=== PATIENT | female | born 1945 | race Caucasian/White ===

== ENCOUNTER 2020-12-04 12:44 | Outpatient (REF) | payer MEDICARE, SELFPAY ==
[2020-12-04 14:16] LABS: Hematocrit 39.3 % (37-47); Hemoglobin 12.4 g/dl (12.0-16.0); Mean Corpuscular HGB Conc 31.6 g/dl (31.0-35.0); Mean Corpuscular Volume 94.9 fL (80-98); Mean Platelet Volume 11.5 fL (9.4-12.3); Platelet Count 393 X10*3/uL (160-400); Red Blood Count 4.14 X10*6/uL (4.20-5.50); Red Cell Distribution Width 12.2 % (11.0-16.0); White Blood Count 11.5 X10*3/uL (4.8-10.8)
[2020-12-04 14:39] LABS: Estimated Average Glucose 105 mg/dL; Hemoglobin A1c % 5.3 %
[2020-12-04 15:02] LABS: Alanine Aminotransferase 11 U/L (0-31); Albumin Level 4.2 g/dL (3.5-5.0); Alkaline Phosphatase 100 U/L (39-117); Anion Gap 14 (12-20); Aspartate Amino Transferase 18 U/L (5-31); Bilirubin Direct < 0.2 mg/dL (0.0-0.5); Bilirubin Total 0.3 mg/dL (0.0-1.0); Blood Urea Nitrogen 13 mg/dL (9-16); Calcium 9.6 mg/dL (8.4-10.2); Carbon Dioxide 28 mmol/L (22-29); Chloride 99 mmol/L (96-108); Cholesterol 203 mg/dL; Estimated Glomerular Filt Rate > 60; Glucose Random 94 mg/dL (60-115); HDL Cholesterol 47 mg/dL; Iron 91 mcg/dL (30-160); LDL Cholesterol Calculated 124 mg/dl; Percent Iron Saturation 28 % (15-50); Potassium 4.9 mmol/L (3.3-5.1); Sodium 136 mmol/L (135-145); Total Iron Binding Capacity 329 mcg/dL (228-428); Total Protein 7.9 g/dL (6.5-8.0); Triglycerides 160 mg/dL; Unsaturated Iron Binding 238 ug/dL
[2020-12-04 15:18] LABS: Ferritin 88 ng/mL (10-250); Free T4 (Free Thyroxine) 1.08 ng/dL (0.71-1.85); Thyroid Stimulating Hormone 1.23 uIU/mL (0.32-4.0); Vitamin D 25-OH Total 37.6 ng/mL (>30)
[2020-12-04 15:36] LABS: Folate 4.8 ng/mL (> or = 4.0); Vitamin B12 297 pg/mL (200-900)
[2020-12-05 08:09] LABS: HBsAGNum1 0.15 S/CO (0.00-0.99); Hepatitis B Surface Antigen Negative (Negative); ~HepC Num1 0.55 S/CO (0.00-0.79); ~Hepatitis C Antibody Nonreactive (Nonreactive)
[2020-12-05 08:18] LABS: HBS Num1 0.44 mIU/mL (0-7.99); HIV AB/AG Nonreactive (Nonreactive); ~Hepatitis B Surface Antibody NONREACTIVE (Nonreactive)
[2020-12-05 08:33] LABS: Hepatitis A Antibody IgG REACTIVE (Nonreactive); ~Hepatitis A Antibody IgG 7.94 S/CO (0.00-0.99)
[2020-12-05 08:44] LABS: Syphilis Screen Nonreactive (Nonreactive)
== END 2020-12-04 12:45 | disposition home or self-care (01) ==
LOC: HO.HMGCLNP 12:44
PROVIDERS: Visit Provider Family Medicine
DX: E78.5 Hyperlipidemia, unspecified (principal); I10 Essential (primary) hypertension; Z11.3 Encounter for screening for infections with a predominantly sexual mode of transmission
CPT/HCPCS: 80048; 80061; 80076; 82306; 82607; 82728; 82746; 83036; 83540; 84439; 84443; 85027; 86706; 86708; 86780; 86803; 87340; 87389

== ENCOUNTER 2024-01-09 08:15 | Outpatient (REF) | payer MEDICARE, SELFPAY ==
[2024-01-09 11:31] LABS: Hematocrit 38.9 % (37.0-47.0); Hemoglobin 12.2 g/dl (12.0-16.0); Mean Corpuscular HGB Conc 31.4 g/dl (31.0-35.0); Mean Corpuscular Hemoglobin 30.6 pg (27.0-33.0); Mean Corpuscular Volume 97.5 fL (80.0-98.0); Mean Platelet Volume 12.5 fL (9.4-12.3); Platelet Count 204 X10*3/uL (160-400); Red Blood Count 3.99 X10*6/uL (4.20-5.50); Red Cell Distribution Width 12.1 % (11.0-16.0); White Blood Count 8.1 X10*3/uL (4.8-10.8)
[2024-01-09 11:46] LABS: Estimated Average Glucose 94 mg/dL; Hemoglobin A1c % 4.9 % (<6.0)
[2024-01-09 11:49] LABS: Alanine Aminotransferase 12 U/L (0-31); Albumin Level 4.1 g/dL (3.5-5.0); Alkaline Phosphatase 98 U/L (39-117); Anion Gap 14 (12-20); Aspartate Amino Transferase 21 U/L (5-31); Bilirubin Direct < 0.2 mg/dL (0.0-0.5); Bilirubin Total 0.2 mg/dL (0.0-1.0); Blood Urea Nitrogen 13 mg/dL (9-16); Calcium 9.8 mg/dL (8.4-10.2); Carbon Dioxide 31 mmol/L (22-29); Chloride 102 mmol/L (96-108); Cholesterol 197 mg/dL (<200); Estimated Glomerular Filt Rate > 60; Glucose Random 104 mg/dL (60-115); HDL Cholesterol 40 mg/dL (>40); LDL Cholesterol Calculated 123 mg/dL (<100); Potassium 3.9 mmol/L (3.3-5.1); Sodium 143 mmol/L (135-145); Total Protein 7.7 g/dL (6.5-8.0); Triglycerides 174 mg/dL (<150)
[2024-01-09 12:07] LABS: Free T4 (Free Thyroxine) 1.02 ng/dL (0.71-1.85); Thyroid Stimulating Hormone 1.03 uIU/mL (0.32-4.0); Vitamin D 25-OH Total 70.5 ng/mL (>30)
== END 2024-01-09 08:16 | disposition home or self-care (01) ==
LOC: HO.HHCL 08:15
PROVIDERS: Visit Provider Family Medicine
DX: H93.8X3 Other specified disorders of ear, bilateral (principal); F41.9 Anxiety disorder, unspecified; F32.A Depression, unspecified; G20.A1 Parkinson's disease without dyskinesia, without mention of fluctuations; Z13.1 Encounter for screening for diabetes mellitus
CPT/HCPCS: 36415; 80048; 80061; 80076; 82306; 83036; 84439; 84443; 85027

== ENCOUNTER 2025-01-08 11:28 | Outpatient (AMB) | payer MEDICARE, SELFPAY ==
--- NOTE | 2025-01-08 11:30 | A.OFFVIS_ITS ---
Intake Visit Reasons: Follow Up Allergies No Known Allergies Allergy (Verified 01/04/25 14:27) HPI Comments Details: 79 yo woman with COPD, severe arthritis, and hand tremor. She was continuously having right hand and jaw tremor. She was also c/o right occipital area pain and hearing difficulty. She is presenting with tremor and management of headache. She has been experiencing persistent tremors and previously attempted treatment with epilepsy medications such as Tramadol, Clonazepam, and Topiramate, which provided limited relief. Additionally, she has a history of arthritis for which she has tried aspirin and previously used medications like prednisone. Her headaches have seen improvement with ongoing Topiramate use, and she continues this medication regimen. She also has a history of COPD, which was briefly addressed as part of her comprehensive health care management. [facility] Medical History (Updated 01/08/25 @ 11:37 by Meghann Ro MD) Parkinsonism Rheumatoid arthritis Review of Systems Const Details: - Musculoskeletal: Reports persistent tremor and arthritis. - Neurological: Reports headaches managed with Topiramate. Denies current recurrence of headaches. - Respiratory: Reports history of COPD. Physical Exam Neuro Other: She is alert and awake with normal spontaneity of speech fluency comprehension and affect. She has severe arthritic changes in hands. There was [id number] bilateral hand tremor. She is in a wheelchair. Assessment & Plan Assessment & Plan (1) Tremor: Comment: Meds tried: Primidone, benztropine, amantadine, clonazepam, carbidopa/levodopa, topiramate Code(s): R25.1 - Tremor, unspecified Category: Medical (2) Occipital neuralgia: Code(s): M54.81 - Occipital neuralgia Category: Medical Qualifiers: Laterality: right Qualified Code(s): M54.81 - Occipital neuralgia (3) Migraine: Code(s): G43.909 - Migraine, unspecified, not intractable, without status migrainosus Category: Medical Qualifiers: Migraine type: migraine (< 15 days per month) without aura Status migrainosus presence: without status migrainosus Intractability: not intractable Qualified Code(s): G43.009 - Migraine without aura, not intractable, without status migrainosus Plan Impression: a: Severe arthritis b: Moderate to severe hand tremor, resistent to meds c: Chronic migraine type headaches d: Oxygen dependent COPD Rec: a: Try phenobarb 30mg one at night for tremor b: Topiramate 50mg bid for headaches During the visit, we discussed the patient's experience with various epilepsy medications for her tremor, noting limited success. Consequently, I decided to prescribe Phenobarbital, as it is an older medication that has shown effectiveness for tremors. We also reviewed her headache management, and it was concluded that continuation with Topiramate is beneficial, as she confirms improved symptoms. There was no new plan made for her arthritis beyond her current aspirin use, and her COPD treatment was not altered in this encounter. We agreed on a follow-up in three months to reassess her tremor and overall condition. Medications: New phenobarbital 30 mg PO BEDTIME 90 tabs 0RF Refilled topiramate 50 mg PO BID 180 tabs 0RF 90 days Coding Level of Care Code Est Pt Level 4 (56459) Diagnoses Tremor R25.1 Occipital neuralgia of right side M54.81 Laterality: right Migraine without aura and without status migrainosus, not intractable G43.009 Migraine type: migraine (< 15 days per month) without aura Status migrainosus presence: without status migrainosus Intractability: not intractable
--- OUTSIDE RECORDS SUMMARY | 2025-01-08 14:23 | XMS_ITS | Encounter Summary ---
Author Organization [employer] Address [address] [facility] 7t [place] [address] Care Team Providers Care Grinder Set Up Operator Internal Name Role Phone Elena Lees DO Primary Care Provider +1- [phone] Reason for Visit * Reason Onset Date Comments Medication Question 06/22/2024 Encounter Details Date Type Department Care Team (Late st Contact Info) Description 06/22/2024 Telephone [facility] [address] [place], [place] [phone] Elena Lees DO [address] [place], [place] [phone] Medication Question Social History Tobacco Use Types Packs/Day Years Used Date Smoking Tobacco: Every Day Cigarettes Smokeless Tobacco: Never Depression Answer Date Recorded Patient Health Questionnaire-9 Score 25 06/30/2023 Patient Health Questionnaire-9 Score 25 06/30/2023 Last PHQ-9: Questionnaire Data Not on file 0 06/30/2023 Depression Answer Date Recorded Patient Health Questionnaire-2 Score 6 06/30/2023 Comments Unknown Sex and Gender Information Value Date Recorded Sex Assigned at Female 02/15/2022 10:38 AM EDT Legal Sex Female 10:38 AM EDT Gender Identity Female 02/15/2022 10:38 AM EDT Sexual Orientation Don't know 02/15/2022 10 :38 AM EDT documented as of this encounter Miscellaneous Notes * Telephone Encounter - Steve Parr RN - 06/22/2024 3:31 PM EST TC placed to patient daughter in regards to message below. Daughter not on HIPAA. Patient advised daughter would need verbal consent from patient to speak with her. Patient was with daughter at time of call. Patient gave verbal consent to be able to speak with daughter. Daughter reports patient hasbeen having runny nose, sneezing itchy watery eyes, burning eye (slight redness). Daughter states the loratadine (Claritin) doesn't help and the cetirizine) Zyrtec helped better in the past. Per lastoffice note Zyrtec was changed to Claritin. Patients daughter was not present for that appt. RN advised to have patient try Claritin and nasacort for now and RN will send message to PCP to see if shecan be switched back to the Zyrtec which per daughter works better for patient than Claritin. Daughter verbalized understanding and agreed with plan. * Telephone Encounter - Kylah Bailey - 06/22/2024 2:48 PM EST Tc from pt's daughter requesting cetirizine (ZyrTEC) 10 MG tablet (discontinued med) documented in this encounter Plan of Treatment Not on file documented as of this encounter Visit Diagnoses Not on filedocumented in this encounter Additional Health Concerns Assessment Noted Time PHQ-9 Depression Total Score: 25 06/29/ 024 9:18 AM EDT documented as of this encounter Care Teams Grinder Set Up Operator Internal Relationship Specialty Start Date End Date Elena Lees DO [address] [place] [id number] PCP - General Family Medicine 11/26/20 documented as of this encounter
--- OUTSIDE RECORDS SUMMARY | 2025-01-08 14:23 | XMS_ITS | Encounter Summary ---
Author Organization [employer] Address [address] [facility] 7t [place] [address] Care Team Providers Care Bow Maker Name Role Phone Elena Lees DO Primary Care Provider [phone]- [phone] Reason for Visit * Reason Onset Date Comments Med Refill 05/01/2024 Encounter Details Date Type Department Care Team (Late st Contact Info) Description 05/01/2024 Telephone [facility] [address] [place], [place] [phone] Elena Lees DO 230 [place], [place] [phone] Med Refill Social History Tobacco Use Types Packs/Day Years [...] encounter Miscellaneous Notes * Telephone Encounter - Elena Norris LPN - 05/01/2024 11:16 AM EST Script was sent to [id number] on 03/19/24 #30 with 2 refills please advise patient to call pharmacy for refill. * Telephone Encounter - Kylah Kanika Bailey - 05/01/2024 11:10 AM EST TC from pt requesting medication refill. Medications needing refill : sertraline (Zoloft) 25 MG tablet To be sent to: [id number] - [place], [place] - [address] [facility] [address] documented in this encounter Plan of Treatment Not on file documented as of this encounter Visit Diagnoses Not on filedocumented in this encounter Additional Health Concerns Assessment Noted Time PHQ-9 Depression Total Score: 25 024 9:18 AM EDT documented as of this encounter Care Teams Bow Maker Relationship Specialty Start Date End Date Elena Lees DO [address] [place] [address] PCP - General Family Medicine 11/26/20 documented as of this encounter
--- OUTSIDE RECORDS SUMMARY | 2025-01-08 14:23 | XMS_ITS | Encounter Summary ---
Author Organization [employer] Address [address] [facility] 7t [place] [address] Care Team Providers Care Membership Sales Advisor Name Role Phone EllenjacquiElena DO Primary Care Provider [phone] Reason for Visit * Reason Onset Date Comments Nurse Triage 05/16/2023 Encounter Details Date Type Department Care Team (Late st Contact Info) Description 05/16/2023 Telephone [facility] 230 [place], [place] [phone] Elena Lees DO [address] [place], [place] [phone] Nurse Triage Social History Tobacco Use Types Packs/Day Years Used Date Smoking Tobacco: Every Day Cigarettes Smokeless Tobacco: Never Comments Unknown Sex and Gender Information Value Date Recorded Sex Assigned at Female 02/15/2022 10:38 AM EDT Legal Sex Female 10:38 AM EDT Gender Identity Female 02/15/2022 10:38 AM EDT Sexual Orientation Don't know 02/15/2022 10 :38 AM EDT documented as of this encounter Miscellaneous Notes * Telephone Encounter - Margo Jackson RN - 05/16/2023 10:57 AM EST Call to Josey Nguyen, reports having right ear pain x 2 days. No redness behind ear or drainage. Pt also having itching and congestion. Mild ST. No headache or fever. Pt offered stephanie today or tomorrow. Pt states has no transportation. Pt offered [employer]. Pt declines as states is in a wheelchair.Pt was looking to r/s appt with PCP. Nothing with PCP at this time. Pt advised to seek UC. Pt endedcall without this health science writer being able to review home care advise. Pt to follow up PRN. Will send to team to follow up re: rescheduling. Protocol Used: Earache (Adult) Protocol-Based Disposition: See in Office or Video Visit Today or Tomorrow Positive Triage Question: * All other earaches (Exceptions: Earache lasting < 1 hour, and earache from air travel.) * All higher-acuity triage questions were negative Care Advice Discussed: * Reasons To Call Back - You become worse * Telephone Encounter - Lalito Rodriguez - 05/16/2023 10:24 AM EST Symptom: Earache Outcome: Schedule an urgent appointment (within 1 hour) or talk to a nurse or provider soon Reason: Severe pain now documented in this encounter Plan of Treatment Not on file documented as of this encounter Visit Diagnoses Not on filedocumented in this encounter Care Teams Membership Sales Advisor Relationship Specialty Start Date End Date Elena Lees DO [address] [place] [id number] PCP - General Family Medicine 11/26/20 documented as of this encounter
--- OUTSIDE RECORDS SUMMARY | 2025-01-08 14:23 | XMS_ITS | Encounter Summary ---
Author Organization [employer] Address [address] [facility] 7t [place] [address] Care Team Providers Care Line Up Examiner Name Role Phone Elena Lees DO Primary Care Provider [phone]- [phone] Reason for Visit * Reason Comments Med Refill Encounter Details Date Type Department Care Team ([facility] st Contact Info) Description 08/21/2023 Refill [facility] [address] [place], [place] [phone] Elena Lees DO [address] [place], [place] [phone] Social History Tobacco Use Types Packs/Day Years [...] AM EDT documented as of this encounter Plan of Treatment Not on file documented as of this encounter Visit Diagnoses Not on filedocumented in this encounter Additional Health Concerns Assessment Noted Time PHQ-9 Depression Total Score: 25 06/29/2 024 9:18 AM EDT documented as of this encounter Care Teams Line Up Examiner Relationship Specialty Start Date End Date Elena Lees DO [address] [place] [address] PCP - General Family Medicine 11/26/20 documented as of this encounter
--- OUTSIDE RECORDS SUMMARY | 2025-01-08 14:23 | XMS_ITS | Encounter Summary ---
Author Organization [employer] Address [address] [facility] 7t [place] [address] Care Team Providers Care Marketing Liaison Name Role Phone Elena Lees DO Primary Care Provider [phone]- [phone] Encounter Details Date Type Department Care Team (Late st Contact Info) Description 11/30/2022 Orders Only [facility] 230 [place], [place] [phone] Cynthia Ferro MD [address] [place] [address] Closed fracture of phalanx of toe of left foot with routine healing, physeal involvement unspecified, unspecified toe, subsequent encounter (Primary Dx) Social History Tobacco Use Types Packs/Day Years Used Date Smoking Tobacco: Never Assessed Comments Unknown Sex and Gender Information Value Date Recorded Sex Assigned at Female 02/15/2022 10:38 AM EDT Legal Sex Female 10:38 AM EDT Gender Identity Female 02/15/2022 10:38 AM EDT Sexual Orientation Don't know 02/15/2022 10 :38 AM EDT documented as of this encounter Plan of Treatment Not on file documented as of this encounter Visit Diagnoses Diagnosis Closed fracture of phalanx of toe of left foot with routine healing, physeal involvement unspecified, unspecified toe, subsequent encounter- Primary documented in this encounter Care Teams Marketing Liaison Relationship Specialty Start Date End Date Elena Lees DO [address] [place], [place] [phone] PCP - General Family Medicine 11/26/20 documented as of this encounter
--- OUTSIDE RECORDS SUMMARY | 2025-01-08 14:23 | XMS_ITS | Encounter Summary ---
Author Organization [employer] Address [address] [facility] [address] [place] [address] Care Team Providers Care Role Player Name Role Phone Elena Lees DO Primary Care Provider +1 [phone] Reason for Visit * Reason Onset Date Comments Reschedule 03/31/2023 Encounter Details Date Type Department Care Team ([facility] st Contact Info) Description 03/31/2023 Telephone [facility] MED[facility]INE [address] [place] [address] Elena Lees DO [address] [place], [place] [phone] Reschedule Social History Tobacco Use Types Packs/Day Years [...] encounter Miscellaneous Notes * Telephone Encounter - Janice Rebolledo - 03/31/2023 2:43 PM EST Tc from pt requesting to r/s 03/21 f/u appointment. Please contact pt at [phone] documented in this encounter Plan of Treatment Not on file documented as of this encounter Visit Diagnoses Not on filedocumented in this encounter Care Teams Role Player Relationship Specialty Start Date End Date Elena Lees DO [address] [place] [address] PCP - General Family Medicine 11/26/20 documented as of this encounter
--- OUTSIDE RECORDS SUMMARY | 2025-01-08 14:23 | XMS_ITS | Encounter Summary ---
Author Organization [employer] Address [address] [facility] 7t [place] [address] Care Team Providers Care Sand Worker Name Role Phone Elena Lees DO Primary Care Provider +1- [phone] Reason for Visit * Reason Onset Date Comments Reschedule 08/15/2023 Encounter Details Date Type Department Care Team (Late st Contact Info) Description 08/15/2023 Telephone [facility] MED[facility]INE 230 [place], [place] [phone] Elena Lees DO 230 [place], [place] [phone] Reschedule Social History Tobacco Use Types Packs/Day [...] encounter Miscellaneous Notes * Telephone Encounter - Lalito Rodriguez - 09/02/2023 2:13 PM EDT Tc from pt calling in regards to message prior to reschedule telephone visit with pcp. * Telephone Encounter - Janice Rebolledo - 08/15/2023 10:44 AM EDT Tc from pt requesting to reschedule 08/04 tele appointment. Please contact pt at [phone] documented in this encounter Plan of Treatment Not on file documented as of this encounter Visit Diagnoses Not on filedocumented in this encounter Additional Health Concerns Assessment Noted Time PHQ-9 Depression Total Score: 25 024 9:18 AM EDT documented as of this encounter Care Teams Sand Worker Relationship Specialty Start Date End Date Elena Lees DO [address] [place] [id number] PCP - General Family Medicine 11/26/20 documented as of this encounter
--- OUTSIDE RECORDS SUMMARY | 2025-01-08 14:23 | XMS_ITS | Encounter Summary ---
Author Organization [employer] Address [address] [facility] 7t [place] [address] Care Team Providers Care Welding Machine Operator Gas Name Role Phone Elena Lees DO Primary Care Provider +1- [phone] Reason for Visit * Reason Comments Med Refill Encounter Details Date Type Department Care Team ([facility] st Contact Info) Description 11/01/2023 Refill [facility] [address] [place], [place] [phone] Elena Lees DO 230 [place], [place] [phone] Essential hypertension Social History Tobacco Use Types Packs/Day Years [...] as of this encounter Visit Diagnoses Diagnosis Essential hypertension Unspecified essential hypertension documented in this encounter Additional Health Concerns Assessment Noted Time PHQ-9 Depression Total Score: 25 06/29/ 024 9:18 AM EDT documented as of this encounter Care Teams Welding Machine Operator Gas Relationship Specialty Start Date End Date Elena Lees DO [address] [place] [address] PCP - General Family Medicine 11/26/20 documented as of this encounter
--- OUTSIDE RECORDS SUMMARY | 2025-01-08 14:23 | XMS_ITS | Encounter Summary ---
Author Organization [employer] Address [address] [facility] [address] [place] [address] Care Team Providers Care Preload Supervisor Name Role Phone Elena Lees DO Primary Care Provider +1- [phone] Encounter Details Date Type Department Care Team (Late st Contact Info) Description 03/20/2024 Telephone [facility] MED[facility]INE 230 [place], [place] [phone] Elena Lees DO [address] [place], [place] [phone] Social History Tobacco Use Types Packs/Day Years [...] documented as of this encounter Care Teams Preload Supervisor Relationship Specialty Start Date End Date Elena Lees DO [address] [place], [place] [phone] PCP - General Family Medicine 11/26/20 documented as of this encounter
--- OUTSIDE RECORDS SUMMARY | 2025-01-08 14:23 | XMS_ITS | Encounter Summary ---
Author Organization [employer] Address [address] [facility] 7t [place] [address] Care Team Providers Care Computer Equipment Installer Name Role Phone Elena Lees DO Primary Care Provider +1- [phone] Reason for Visit * Reason Comments Med Refill Encounter Details Date Type Department Care Team ([facility] st Contact Info) Description 04/20/2024 Refill [facility] 230 [place], [place] [phone] Elena Lees DO [address] [place], [place] [phone] Social History Tobacco Use Types Packs/Day Years [...] documented as of this encounter Care Teams Computer Equipment Installer Relationship Specialty Start Date End Date Elena Lees DO [address] [place] [address] PCP - General Family Medicine 11/26/20 documented as of this encounter
--- OUTSIDE RECORDS SUMMARY | 2025-01-08 14:23 | XMS_ITS | Clinical Summary ---
Author Organization [employer] Address [address] [facility] 7t [place] [address] Care Team Providers Care Lockstitch Sleeve Maker Name Role Phone Elena Lees DO Primary Care Provider Allergies Active Allergy Reactions Criticality Noted Date Comments Codeine Unknown 11/26/2020 Other Reaction(s): Not available Gold-Containing Drug Products Unknown 09/14/2024 Hydrocodone 06/30/2023 Other Reaction(s): Not available Lisinopril 11/26/2020 Other Reaction(s): Not available Morphine 11/26/2020 Other Reaction(s): Not available Oxycodone 11/22/2022 Prednisone 11/22/2022 Tramadol 11/26/2020 Other Reaction(s): Not available Medications * This document contains information received from the source organization and may not represent a complete record from that organization. gabapentin (Neurontin) 100 MG capsule TAKE 1 CAPSULE BY MOUTH TWICE A DAY 60 capsule 3 09/11/19 23 Active budesonide-form oterol (Symbicort) 160-4.5 MCG/ACT inhaler Inhale 2 puffs every 12 (twelve) hours. 04/21/19 22 Active carbidopa-levod opa (Sinemet) 25-250 MG tablet TAKE 1 TABLET BY MOUTH EVERY MORNING AND AT NOON 11/04/19 23 Active primidone (Mysoline) 50 MG tablet Take 50 mg by mouth 2 times daily. 11/04/19 23 Active albuterol (2.5 MG/3ML) 0.083% nebulizer solution INHALE THE CONTENTS OF 1 AMPULE EVERY 6 HOURS NEEDED FOR WHEEZING 11/02/19 23 Active amitriptyline (Elavil) 10 MG tabletIndicatio ns:Other chronic pain TAKE 2 TABLETS BY MOUTH EVERY NIGHT AT BEDTIME 60 tablet 5 01/04/20 23 Active acetaminophen (Mapap Arthritis Pain) 650 MG ER tablet TAKE 1 TABLET BY MOUTH EVERY 8 HOURS NEEDED FOR PAIN OR FEVER Active albuterol 108 (90 Base) MCG/ACT inhaler INHALE 2 PUFFS BY MOUTH EVERY 4 HOURS NEEDED FOR COUGH OR WHEEZING OR SHORTNESS OF BREATH 8.5 g 2 08/10/19 24 Active topiramate (Topamax) 25 MG tablet Take 25 mg by mouth 2 times daily. Active hydrOXYzine pamoate (Vistaril) 25 MG capsule TAKE 1 CAPSULE(25 MG) BY MOUTH EVERY 6 HOURS NEEDED FOR ANXIETY 30 capsule 2 04/20/19 25 Active carvedilol (Coreg) 3.125 MG tabletIndicatio ns:Essential hypertension TAKE 1 TABLET BY MOUTH TWICE DAILY WITH FOOD 180 tablet 1 05/04/19 25 Active pravastatin (Pravachol) 80 MG tablet TAKE 1 TABLET BY MOUTH EVERY DAY AT BEDTIME 90 tablet 1 07/18/19 25 Active cetirizine (ZyrTEC) 10 MG tablet Take 0.5 tablets (5 mg) by mouth Once per day. 15 tablet 11 08/28/19 25 026 Active pseudoephedrine (Sudafed) 30 MG tablet Take 1 tablet (30 mg) by mouth every 8 (eight) hours if needed for congestion for up to 5 days. 12 tablet 09/15/19 25 Active tiotropium (Spiriva HandiHaler) [address] 1 capsule (18 mcg) into inhaler and inhale in the morning. 30 capsule 11 09/15/19 25 Active nystatin (Mycostatin) 135774 UNIT/GM powder Apply topically 2 times daily. 240 g 3 10/16/19 25 026 Active sertraline (Zoloft) 50 MG tablet TAKE 1 TABLET(50 MG) BY MOUTH DAILY 30 tablet 12/20/19 25 Active amLODIPine (Norvasc) 10 MG tabletIndicatio ns:Essential hypertension TAKE 1 TABLET(10 MG) BY MOUTH IN THE MORNING 90 tablet 1 12/26/19 25 Active fluticasone (Flonase) 50 MCG/ACT nasal spray Administer 2 sprays into each nostril Once per day. Shake gently. Before first use, prime pump. After use, clean tip and replace cap. 16 g 3 01/04/20 25 Active triamcinolone (Nasacort) 55 MCG/ACT nasal inhaler Administer 2 sprays into each nostril Once per day. 16.5 g 11 01/04/20 24 025 amLODIPine (Norvasc) 10 MG tabletIndicatio ns:Essential hypertension TAKE 1 TABLET(10 MG) BY MOUTH IN THE MORNING 90 tablet 1 06/26/19 25 025 Discontinued fluticasone (Flonase) 50 MCG/ACT nasal spray ADMINISTER 1 SPRAY INTO EACH NOSTRIL ONCE A DAY 07/04/19 25 025 Discontinued(R eorder (will not trigger notification to Pharmacy)) sertraline (Zoloft) 50 MG tablet Take 1 tablet (50 mg) by mouth Once per day. 30 tablet 2 09/15/19 25 025 Discontinued Active Problems Problem Noted Date Diagnosed Date Diastolic congestive heart failure 08/05/2023 Major depression 06/30/2023 Assessment & Plan (06/30/2023 12:15 PM EDT): New/Additional Services needed Off-site services for Behavioral Health Integration Plan External OP therapy referral Patient Self Plan Patient to reach out to [facility] team as needed, Comply with medication , and Patient to engage in OP therapy LARRY (generalized anxiety disorder) 06/30/2023 Parkinson disease 11/22/2022 Assessment & Plan (11/22/2022 11:42 AM EDT): Pt reports symptoms are worsening. She has an appointment on the phone tomorrow and will let Dr. Ro know. Chronic back pain 08/04/2022 Chronic obstructive lung disease 08/04/2022 Assessment & Plan (09/15/2023 2:57 PM EDT): On exam today she has minor cough, but lungs are clear to auscultation Pulse oxygen was low on arrival due to the fact pt was off her oxygen, ( the battery of her portable concentrator ) once she was put back on oxygen her saturation went up to 98% I recommended she makes sure to stay on her oxygen at all times Assessment & Plan (12/18/2022 1:19 PM EDT): Unclear if sxs exacerbation is related to Bronchitis? CHF? CAD? Other conditions--> anemia? UTI?Secondary lung condition: PE? Ca? Patient to continue with Symbicort, albuterol and O2 4 li NC. I told her she needs to be seen in the ED today to ro any of the above conditions. She wanted to wait until the evening that a relative could bring her to [place] ED and didn't want me to call an ambulance to take her sooner. I told them that the sooner she's taken there, the sooner she'll be evaluated by ED provider, specially EDs tend to get busier during the evening hours. Again she declined that I call an ambulance service for that, wanted me to admitted directly. I explained that I couldn't admit her directly without evaluating her first and that an ED provider will do exactly that. I told her that I could call the ED of choice (apparently [place] [facility]) and give them a soft sign out about her conditions. Patient was upset and her daughter got mad and told me that ...all doctors in [place] are f###d up... . They both understood that acute conditions couldn't be ruled out over the phone and declined again to have an ambulance picking her up to take her to ED. I called [place] ED for a soft sign out on patient's conditions/sxs. I spoke with Nakia, the head nurse and rely Mrs Nguyen's clinical info and that she was arriving most likely via private vehicle. We'll fu with her on Tuesday and schedule a fu with her. I will send a referral to pulmonology to evaluate her once stabilized in ED/hospital given advanced COPD /O2 requirements/smoking status and comorbidities. Coronary artery disease 08/04/2022 Assessment & Plan (12/18/2022 12:46 PM EDT): Unclear if she has an underlying ACS exacerbating SOB. Patient advised to be seen in ED [facility]. See above Degeneration of lumbar intervertebral disc 08/04 Dependence on supplemental oxygen 08/04/2022 History of coronary artery stent placement 08/04 Mixed hyperlipidemia 08/04/2022 Hypertension 08/04/2022 Osteoporosis 08/04/2022 Prediabetes 08/04/2022 Rheumatoid arthritis 08/04/2022 Status post elbow joint replacement 08/04/2022 Tobacco dependence 08/04/2022 Status post knee replacement 08/04/2022 Resolved Problems Problem Noted Date Diagnosed Date Resolved Date Acute non-recurrent maxillary sinusitis 09/15/2023 01/04/2024 Assessment & Plan (09/15/2023 2:49 PM EDT): Patient's physical exam and symptomatology suggestive of this Pt c/o purulent nasal discharge, congestion and she is tender to palpation both maxillary sinus area. 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 She is at baseline. Encounters Date Type Department Care Team Description 01/03/2025 Refill [facility] [address] [place] [address] Elena Lees DO 12/25/2024 Refill [facility] [address] [place] [address] Elena Lees DO 12/22/2024 Refill [facility] [address] [place] [address] Elena Lees DO Essential hypertension 12/18/2024 Refill [facility] [address] [place] [address] Elena Lees DO 11/28/2024 Telephone [facility] [address] [place] [address] Elena Lees DO Med Refill 10/15/2024 Orders Only [facility] [address] [place] [address] Elena Lees DO 10/15/2024 Orders Only [facility] [address] [place] [address] Elena Lees, Chronic obstructive pulmonary disease, unspecified COPD type (CMS/HCC) (Primary Dx) 10/09/2024 Refill [facility] [address] [facility] [place] [address] Elena Lees, Rash from Last 3 Months Immunizations Immunization Administration Dates Next Due Influenza High-dose Quadrivalent Preservative Fr ee 01/29/2022 Pneumococcal Conjugate PCV 13 01/29/2022 Social History Tobacco Use Types Packs/Day Years Used Date Smoking Tobacco: Every Day Cigarettes Smokeless Tobacco: Never Tobacco Cessation:Ready to Q uit: Not Asked; Counseling Given: Not Answered Alcohol Use Standard Drinks/Week Comments Never 0 (1 standard drink = 0.6 oz pur e alcohol) Depression Answer Date Recorded Patient Health Questionnaire-9 Score 25 06/30/2023 Patient Health Questionnaire-9 Score 25 06/30/2023 Last PHQ-9: Questionnaire Data Not on file 0 06/30/2023 Housing Stability Answer Date Recorded What is your housing situation today? I have joey garcia 09/14/[address] you li ve. Do you have problems with any of the following? I am not sure 09/14/2024 Food Insecurity Answer Date Recorded Within the past 12 months, y ou worried that your food would run out before you got money to buy more: Never True 09/14/2024 Within the past 12 months,th e food you bought just didn't last and you didn't have enough money to get more: Never True Transportation Answer Date Recorded In the past 12 months, has l ack of transportation kept you from medical appts, meetings, work or from getting things needed for daily living? No 09/14/2024 Utilities Answer Date Recorded In the past 12 months, has t he electric, gas, oil or water company threatened to shut off services in your home? No 09/14/2024 Depression Answer Date Recorded Patient Health Questionnaire-2 Score 6 06/30/2023 Internet Access Answer Date Recorded Internet Access Q1 Yes 09/14/2024 Internet Access Q2 Not on file 09/14/2024 Comments No Sex and Gender Information Value Date Recorded Sex Assigned at Female 02/15/2022 10:38 AM EDT Legal Sex Female 10:38 AM EDT Gender Identity Female 02/15/2022 10:38 AM EDT Sexual Orientation Don't know 02/15/2022 10 :38 AM EDT Last Filed Vital Signs Vital Sign Reading Time Taken Comments Blood Pressure 136/80 09/14/2024 10:14 AM EDT Pulse 76 09/14/2024 10:14 AM EDT Temperature 37.1 C (98.7 F) 09/14/2024 10:14 AM EDT Respiratory Rate 21 09/14/2024 10:14 AM EDT Oxygen Saturation 99% 09/14/2024 10:14 AM EDT Inhaled Oxygen Concentration - - Weight 68 kg (150 lb) 09/14/2024 10:14 AM EDT Height 157.5 cm (5' 2 ) 09/14/2024 10:14 AM EDT Body Mass Index 27.44 09/14/2024 10:14 AM EDT Plan of Treatment Health Maintenance Due Date Last Done Comments Alcohol/Substance Use Screening 1957 DTaP/Tdap/Td Vaccines (1 - Tdap) 1964 Zoster Vaccines (1 of 2) 1995 RSV Patients and Patients Aged 60 years or older (1 - 1-dose 75+ series) 2020 Pneumococcal Vaccine: 50+ Years (2 of 2 - PPSV23) 03/26/2022 01/29/2022 Depression Monitoring 12/31/2023 06/30/2023 , 06/30/2023 COVID-19 Vaccine (1 - 2023-2 5 season) 2024 Influenza Vaccine (#1) 2024 01/29/2022 Diabetes: Hemoglobin A1C 01/08/2025 024, 12/04/2020 SDOH Screening 09/14/2025 09/14/2024 Tobacco Screening 09/14/2025 09/14/2024 Lipid Panel 01/08/2029 01/09/2024, 12/04/2020 Hepatitis C Screening Completed 12/04/2020 HIB Vaccines Aged Out No longer eligi ble based on patient's age to complete this topic HPV Vaccines Aged Out No longer eligi ble based on patient's age to complete this topic Hepatitis A Vaccines Aged Out No long er eligible based on patient's age to complete this topic Hepatitis B Vaccines Aged Out No long er eligible based on patient's age to complete this topic IPV Vaccines Aged Out No longer eligi ble based on patient's age to complete this topic Meningococcal B Vaccine Aged Out No l onger eligible based on patient's age to complete this topic Meningococcal Vaccine Aged Out No kamaljit enmanuel eligible based on patient's age to complete this topic RSV under 20 months Aged Out No longe r eligible based on patient's age to complete this topic Rotavirus Vaccines Aged Out No longer eligible based on patient's age to complete this topic Procedures Procedure Name Priority Date/Time Associated Diagnosis Comments HEMOGLOBIN A1C Routine 01/09/2024 8:25 AM EDT Clogged ear, bilateral Anxiety and depression Parkinson's disease, unspecified whether dyskinesia present, unspecified whether manifestations fluctuate (CMS/HCC) LIPID PANEL, STANDARD Routine 01/09/2024 8:25 AM EDT Clogged ear, bilateral Anxiety and depression Parkinson's disease, unspecified whether dyskinesia present, unspecified whether manifestations fluctuate (CMS/HCC) ZZZ HISTORICAL HEPATITIS C ANTIBODY Routine 12/04/2020 12:45 PM EDT from Last 3 Months or Most Recently Relevant to Health Maintenance Results * Hemoglobin A1c (01/09/2024 8:25 AM EDT) Hemoglobin A1c 4.9 <6.0 % [facility] Comment:Hemoglobin A1C Refer ence Range Adults: 4.8 - 6.0 % Non diabetic: < 6.0 % Goal: < 7.0 %Additional Action Suggested: > 8.0 %Note: Hemoglobin A1c results are invalid for patients with abnormal amounts of HbF. Blood transfusions may impact the HbA1c concentration in the patient sample. Estimated Average Glucose 94 mg/dL [facility] Comment:eAG = Estimated ave rage glucose which is %A1C expressed asaverage glucose, using the formula of the X3G-VlfvhqaSskduon Glucose study (ADAG), Diabetes Care, Vol.31,#8,2007 Blood Venous blood specimen / Unknown 01/09/2024 8:25 AM EDT 01/09/2024 11:19 AM EDT us Elena Lees DO LAB BLOOD ORDERABLES Final R esult Performing Organization Address City/[facility]/ZIP Co de Phone Number [facility] [address] [place] [address] [phone] * (ABNORMAL) Lipid Panel, Standard (01/09/2024 8:25 AM EDT) Triglycerides 174(H) <150 mg/dL [facility] Comment:Desirable Triglyceri de: less than 150 mg/dLBorderline High Triglyceride 150-199 mg/dLHigh Triglyceride: 200-499 mg/dLVery High Triglyceride: greater than or equal to 5OO mg/dL Cholesterol 197 <200 mg/dL [facility] Comment:Desirable Cholestero l: less than 200 mg/dLBorderline High Cholesterol: 200-239 mg/dLHigh Cholesterol: greater than 239 mg/dL LDL Cholesterol Calculated 123(H) <100 mg/dL [facility] Comment:Desirable LDL: less than 100 mg/dLNear Optimal/Above Optimal LDL: 110- 129 mg/dLBorderline High LDL: 130-159 mg/dLHigh LDL: 160-189 mg/dLVery High LDL: greater than or equal to 190 mg/dL HDL Cholesterol 40(L) >40 mg/dL [facility] Comment:Desirable HDL: great er than 40 mg/dL Note: This HDL assay may give artificially low results in patients with liver disease. Blood Venous blood specimen / Unknown 01/09/2024 8:25 AM EDT 01/09/2024 11:19 AM EDT us Elena Lees DO LAB BLOOD ORDERABLES Final R esult [facility] [address] [place] [phone] [phone] * Hepatitis C Antibody (12/04/2020 12:45 PM EDT) Hepatitis C Antibody Nonreactive Nonreactive [facility] Comment: Antibodies to HCV not detected; does not exclude early acute HCV infection. Hepatitis B Surface Antigen Negative Negative [facility] Hepatitis B Surface Antibody NONREACTIVE Nonreactive [facility] Comment:Nonreactive: < 8.00 mIU/mL HIV AB/AG Nonreactive Nonreactive [facility] Comment: HIV-1 p24 Ag and/or HIV-1/HIV-2 Ab not detected. A test result that is nonreactive does not exclude the possibility of exposure to or infection with HIV-1 and/or HIV-2. Nonreactive results in this assay for individuals with prior exposure to HIV-1 and/or HIV-2 may be due to antigen and antibody levels that are below the limit of detection of this assay. The Hector Helper Teacher HIV Ag/Ab Combo assay result and supplemental assay results should be interpreted in conjunction with the patient's clinical presentation, history and other laboratory results. If the results are inconsistent with clinical evidence, additional testing is suggested to confirm the result. 12/04/2020 12:4 5 PM EDT us Elena Lees DO HISTORICAL/NON ORDERABLE LAB S Final Result [facility] [address] from Last 3 Months or Most Recently Relevant to Health Maintenance Insurance [facility] MEDICARE ADVANTAGE HMO Care Teams Lockstitch Sleeve Maker Relationship Specialty Start Date End Date Elena Lees DO [address] [place] [phone] PCP - General Family Medicine 11/26/20
--- OUTSIDE RECORDS SUMMARY | 2025-01-08 14:23 | XMS_ITS | Encounter Summary ---
Author Organization [employer] Address [address] [facility] [address] 7[address] [place] [address] Care Team Providers Care Cutter In Name Role Phone Elena Lees DO Primary Care Provider [phone] Reason for Visit * Reason Onset Date Comments Med Refill 11/28/2024 Encounter Details Date Type Department Care Team (Late st Contact Info) Description 11/28/2024 Telephone [facility] [address] [place], [place] [phone] Elena Lees DO [address] [place], [place] [phone] Med Refill Social History Tobacco Use Types Packs/Day Years Used Date Smoking Tobacco: Every Day Cigarettes Smokeless Tobacco: Never Alcohol Use Standard Drinks/Week Comments Never 0 [...] Telephone Encounter - Elena Norris LPN - 11/28/2024 2:47 PM EDT Medication isn't on active med list. * Telephone Encounter - Brook Contreras - 11/28/2024 2:38 PM EDT TC from pt requesting medication refill. Medications needing refill : - Furosemide To be sent to: - [id number] - [place], [place] - [address] [facility] [address] documented in this encounter Plan of Treatment Not on file documented as of this encounter Visit Diagnoses Not on filedocumented in this encounter Additional Health Concerns Assessment Noted Time PHQ-9 Depression Total Score: 25 024 9:18 AM EDT documented as of this encounter Care Teams Cutter In Relationship Specialty Start Date End Date Elena Lees DO [address] [place] [phone] PCP - General Family Medicine 11/26/20 documented as of this encounter
--- OUTSIDE RECORDS SUMMARY | 2025-01-08 14:23 | XMS_ITS | Encounter Summary ---
Author Organization [employer] Address [address] [facility] 7[address] [place] [address] Care Team Providers Care Accounts Receivable Accountant Name Role Phone Elena Lees DO Primary Care Provider [phone] Reason for Visit * Reason Onset Date Comments Med Refill 01/03/2025 Encounter Details Date Type Department Care Team (Late st Contact Info) Description 01/03/2025 Refill [facility]INE [address] [place], [place] [phone] Elena Lees DO [address] [place], [place] [phone] Social History Tobacco Use Types Packs/Day Years [...] encounter Miscellaneous Notes * Telephone Encounter - Mayelin Nickerson LPN - 01/03/2025 12:24 PM EDT Last seen 09.14.24 * Telephone Encounter - Dean Soares - 01/03/2025 12:07 PM EDT TC from pt requesting medication refill. Medications needing refill : fluticasone (Flonase) 50 MCG/ACT nasal spray [id number] - [place], [place] - [address] [facility] [address] [address] [facility] [facility] [address] documented in this encounter Plan of Treatment Not on file documented as of this encounter Visit Diagnoses Not on filedocumented in this encounter Additional Health Concerns Assessment Noted Time PHQ-9 Depression Total Score: 25 024 9:18 AM EDT documented as of this encounter Care Teams Accounts Receivable Accountant Relationship Specialty Start Date End Date Elena Lees DO [address] [place] [address] PCP - General Family Medicine 11/26/20 documented as of this encounter
--- OUTSIDE RECORDS SUMMARY | 2025-01-08 14:23 | XMS_ITS | Encounter Summary ---
Author Organization [employer] Address [address] [facility] 7[address] [place] [address] Care Team Providers Care Rn First Assist Name Role Phone Elena Lees DO Primary Care Provider [phone] Encounter Details Date Type Department Care Team (Late st Contact Info) Description 08/04/2022 Abstract [facility] [address] [place] [address] Elena Lees DO [address] [place] [address] Social History Tobacco Use Types Packs/Day Years [...] on filedocumented in this encounter Care Teams Rn First Assist Relationship Specialty Start Date End Date Elena Lees DO [address] [place] [address] PCP - General Family Medicine 11/26/20 documented as of this encounter
--- OUTSIDE RECORDS SUMMARY | 2025-01-08 14:23 | XMS_ITS | Encounter Summary ---
Author Organization [employer] Address [address] [facility] 7t [place] [address] Care Team Providers Care Corporate Pilot Name Role Phone Elena Lees DO Primary Care Provider [phone] Reason for Visit * Reason Comments Med Refill Encounter Details Date Type Department Care Team ([facility] st Contact Info) Description 09/28/2023 Refill [facility] [address] [place], [place] [phone] Elena Lees DO [address] [place], [place] [phone] Social History Tobacco Use Types Packs/Day Years [...] documented as of this encounter Care Teams Corporate Pilot Relationship Specialty Start Date End Date Elena Lees DO [address] [place] [address] PCP - General Family Medicine 11/26/20 documented as of this encounter
--- OUTSIDE RECORDS SUMMARY | 2025-01-08 14:23 | XMS_ITS | Encounter Summary ---
Author Organization [employer] Address [address] [facility] [address] [place] [address] Care Team Providers Care Furnace Firer Name Role Phone Elena Lees DO Primary Care Provider [phone] Reason for Visit * Reason Onset Date Comments Reschedule 05/13/2023 Encounter Details Date Type Department Care Team (Late st Contact Info) Description 05/13/2023 Telephone [facility]INE [address] [place], [place] [phone] Elena Lees DO [address] [place] [address] Reschedule Social History Tobacco Use Types Packs/Day [...] encounter Miscellaneous Notes * Telephone Encounter - Leigh Ann Lucio - 05/13/2023 10:32 AM EST Tc from pt requesting r/s 05/16/23 appt documented in this encounter Plan of Treatment Not on file documented as of this encounter Visit Diagnoses Not on filedocumented in this encounter Care Teams Furnace Firer Relationship Specialty Start Date End Date Elena Lees DO [address] [place] [address] PCP - General Family Medicine 11/26/20 documented as of this encounter
--- OUTSIDE RECORDS SUMMARY | 2025-01-08 14:23 | XMS_ITS | Clinical Summary ---
Author Organization [facility] Address [address] [place] [address] Phone Care Team Providers Care Vice President Quality Improvement Name Role Phone AdaAye johnstonnifer Tanisha AUSTIN Primary Care Provider [phone] Allergies No known active allergies Medications dexAMETHasone (DECADRON) 4 mg tablet Take 1 tablet (4 mg total) by mouth 2 (two) times a day for 5 days. 10 each Active fluticasone propionate (FLONASE) 50 mcg/actuation nasal spray Administer 1 spray into each nostril 1 (one) time each day. Shake gently. Before first use, prime pump. After use, clean tip and replace cap. 16 g Active Social History Tobacco Use Types Packs/Day Years Used Date Smoking Tobacco: Never Assessed Comments Unknown Sex and Gender Information Value Date Recorded Sex Assigned at Not on file Legal Sex Female 8:31 PM EST Gender Identity Not on file Sexual Orientation Not on file Last Filed Vital Signs Vital Sign Reading Time Taken Comments Blood Pressure 151/89 07/03/2024 5:40 PM EDT Pulse 102 07/03/2024 5:40 PM EDT Temperature 36.7 C (98 F) 07/03/2024 5:40 PM EDT Respiratory Rate 20 07/03/2024 5:40 PM EDT Oxygen Saturation 96% 07/03/2024 5:40 PM EDT Inhaled Oxygen Concentration - - Weight 63.5 kg (140 lb) 07/03/2024 12:51 PM EDT Height 157.5 cm (5' 2 ) 07/03/2024 12:51 PM EDT Body Mass Index 25.61 07/03/2024 12:51 PM EDT Plan of Treatment Health Maintenance Due Date Last Done Comments DTaP,Tdap,and Td Vaccines (1 - Tdap) 1964 Zoster Vaccines (1 of 2) 1995 RSV Immunization Adult Patie nts (1 - 1-dose 75+ series) 2020 Pneumococcal Vaccine: 50+ Ye ars (2 of 2 - PPSV23) 03/26/2022 01/29/2022 Falls Risk Assessment 05/13/2023 Hepatitis C Screening 05/13/2023 Medicare Annual Wellness Visit 05/13/2023 Osteoporosis Screening (Bone Density Screening) 05/13/2023 Social Influencers of Health Screening 05/13/2023 Depression Screening 04/18/2024 COVID-19 Vaccine (1 - 2023-2 5 season) 2024 Influenza Vaccine (#1) 2024 01/29/2022 Hypertension/CHF/CAD Annual BMP Blood Test 07/03/2025 07/03/2024 Cholesterol Screening (Lipid Panel) 01/08/2029 01/09/2024 HIB Vaccines Aged Out No longer eligi [...] on patient's age to complete this topic MMR Vaccines Aged Out No longer eligi ble based on patient's age to complete this topic Meningococcal ACWY Vaccine Aged Out N o longer eligible based on patient's age to complete this topic Meningococcal B Vaccine Aged Out No l onger eligible based on patient's age to complete this topic RSV Immunization Patients Un hilda 20 months Aged Out No longer eligible b ased on patient's age to complete this topic Varicella Vaccines Aged Out No longer eligible based on patient's age to complete this topic Procedures Procedure Name Priority Date/Time Associated Diagnosis Comments COMPREHENSIVE METABOLIC PANEL STAT 07/03/2024 1:07 PM EDT from Last 3 Months or Most Recently Relevant to Health Maintenance Results * (ABNORMAL) Comprehensive metabolic panel (07/03/2024 1:07 PM EDT) Sodium 138 133 - 145 mmol/L LAB CHEMISTRY METHOD 07/03/2024 1:57 PM [facility] Potassium 4.7 3.5 - 5.5 mmol/L LAB CHEMISTRY METHOD 07/03/2024 1:57 PM [facility] Comment:Hemolysis present Chloride 97 96 - 110 mmol/L LAB CHEMISTRY METHOD 07/03/2024 1:57 PM [facility] CO2 37(H) 21 - 32 mmol/L LAB CHEMISTRY METHOD 07/03/2024 1:57 PM [facility] Anion Gap 4 3 - 11 LAB CHEMISTRY METHOD 07/03/2024 1:57 PM [facility] Glucose 171(H) 70 - 100 mg/dL LAB CHEMISTRY METHOD 07/03/2024 1:57 PM [facility] BUN 15 5 - 25 mg/dL LAB CHEMISTRY METHOD 07/03/2024 1:57 PM [facility] Creatinine 0.65 0.50 - 1.10 mg/dL LAB CHEMISTRY METHOD 07/03/2024 1:57 PM [facility] eGFR 90 >=60 mL/min/1. 73m2 LAB CHEMISTRY METHOD 07/03/2024 1:57 PM [facility] Comment:Calculation based on the Chronic Kidney Disease Epidemiology Collaboration (CKD-EPI) equation refit without adjustment for race. BUN/Creatinine Ratio 23.1 LAB CHEMISTRY METHOD 07/03/2024 1:57 PM [facility] Calcium 9.9 8.5 - 10.5 mg/dL LAB CHEMISTRY METHOD 07/03/2024 1:57 PM [facility] AST (SGOT) 25 10 - 42 unit/L LAB CHEMISTRY METHOD 07/03/2024 1:57 PM EDT [facility] Comment:Hemolysis present ALT (SGPT) 15 10 - 60 unit/L LAB CHEMISTRY METHOD 07/03/2024 1:57 PM EDT [facility] Alkaline Phosphatase 99 42 - 121 unit/L LAB CHEMISTRY METHOD 07/03/2024 1:57 PM EDT [facility] Total Protein 8.1(H) 6.0 - 8.0 g/dL LAB CHEMISTRY METHOD 07/03/2024 1:57 PM EDT [facility] Albumin 4.0 3.2 - 5.0 g/dL LAB CHEMISTRY METHOD 07/03/2024 1:57 PM EDT [facility] Total Bilirubin 0.3 0.0 - 1.4 mg/dL LAB CHEMISTRY METHOD 07/03/2024 1:57 PM EDT [facility] Blood Venous blood specimen / Unknown Venipuncture / Unknown 07/03/2024 1:07 PM EDT 07/03/2024 1:14 PM EDT Mono Ambrose MD LAB BLOOD ORDERABLES Ann kitchen Result [facility] [address] [place] [address], from Last 3 Months or Most Recently Relevant to Health Maintenance Insurance [facility] Care Teams Vice President Quality Improvement Relationship Specialty Start Date End Date Elena Lees DO [address] [place] [address] PCP - General Family Medicine 07/03/24
== END 2025-01-08 15:01 | disposition home or self-care (01) ==
LOC: HO.HSM 11:29
PROVIDERS: PCP Family Medicine; Visit Provider Psychiatry & Neurology Neurology
DX: R25.1 Tremor, unspecified (principal); M54.81 Occipital neuralgia; G43.009 Migraine without aura, not intractable, without status migrainosus
CPT/HCPCS: 99214

== ENCOUNTER → 2025-01-08 11:28 | Outpatient (BNVA) | payer MEDICARE, SELFPAY | PROVIDERS: PCP Family Medicine; Visit Provider Psychiatry & Neurology Neurology | DX: G43.009 Migraine without aura, not intractable, without status migrainosus (principal); M54.81 Occipital neuralgia; R25.1 Tremor, unspecified | CPT/HCPCS: 99212 ==